=== PATIENT | male | born 1990 | race African-American/Black ===

== ENCOUNTER 2018-06-25 22:06 | Inpatient (IN) | payer OTHER, SELFPAY ==
[2018-06-25 23:58] LABS: #Basophils 0.1 thou/uL (0.0-0.2); #Eosinphils 0.1 thou/uL (0.0-0.7); #Lymphocytes 2.2 thou/uL (1.20-3.40); #Monocytes 0.9 thou/uL (0.11-0.59); #Neutrophils 3.3 thou/uL (1.40-6.50); %Basophils 0.8 % (0.0-1.0); %Eosinophils 1.4 % (0.0-10.0); %Lymphocytes 33.4 % (21.0-51.0); %Monocytes 13.1 % (0.0-10.0); %Neutrophils 51.3 % (42.0-75.0); Hemoglobin 13.9 g/dL (14.0-18.0); Mean Corpuscular HGB CONC 31.9 g/dL (32.0-36.0); Mean Corpuscular Hemoglobin 28.9 pg (27.0-31.0); Mean Corpuscular Volume 90.7 fL (78.0-98.0); Mean Platelet Volume 6.9 fL (7.4-10.4); Platelet Count 205 thou/uL (130-400); RBC Distribution Width 11.4 % (11.5-14.5); White Blood Cell (WBC) Count 6.5 thou/uL (4.8-10.8)
[2018-06-26] MEDS ORDERED: Dexamethasone 10 MG/ML VIAL ONE (00:01)
[2018-06-26] MEDS ORDERED: Morphine 4 MG/ML VIAL ONE (00:01)
[2018-06-26] MEDS ORDERED: Ketorolac Tromethamine 30 MG/ML VIAL ONE (00:01)
[2018-06-26 00:14] LABS: Anion Gap 13 mmol/L (10-20); BUN (Urea Nitrogen) 6 mg/dL (8.9-20.6); Calc. Creatinine Clearance 0 mL/min (70-130); Calcium 8.8 mg/dL (7.8-10.44); Carbon Dioxide 30 mmol/L (22-29); Chloride 97 mmol/L (98-107); Estimated GFR-MDRD Greater than 90; Glucose 85 mg/dL (70-105); Potassium 3.7 mmol/L (3.5-5.1); Sodium 136 mmol/L (136-145)
[2018-06-26] MEDS ORDERED: Ondansetron PF 4 MG/2 ML Vial IVP PRN (00:40)
[2018-06-26] MEDS: Cefepime 1 GM in Sodium Chloride 0.9% 100 ML IVPB SCH ×2 (01:57→14:03)
[2018-06-26] MEDS: Clindamycin/D5W 600 MG in Premix Bag 1 BAG IVPB SCH ×2 (02:08→10:28)
[2018-06-26 02:19] VITALS: BMI 17.2
--- NOTE | 2018-06-26 03:02 | HP ---
PRIMARY CARE DOCTOR: The patient has no PCP. CODE STATUS: Full code. TIME OF EVALUATION: 1:00 a.m. CHIEF COMPLAINT: Facial swelling. HPI: A 27 year old male patient with past medical history of HIV positive, noncompliant with medication, came to the hospital after having significant swelling in the right side of the face. Symptoms have been present since . The patient initially took some treatment with amoxicillin, did not improve. He came back to the dentist, dentist suggested him to go to the ER given the swelling and the fact that the patient has HIV. Dr. Garcia was called and he has agreed to admit the patient to hospital, he will be consulting. Symptoms are moderate, located in the right lower jaw associated with pain 6/10. Subjective fever, has not had fever here in the hospital, infection. No alleviating factors. REVIEW OF SYSTEMS: CONSTITUTIONAL: Subjective fever. No chills, no generalized weakness. RESPIRATORY: No cough, sputum production, shortness of breath and the patient has right submandibular swelling. Face painful, redness. CARDIOVASCULAR: No chest pain, palpitations. GASTROINTESTINAL: No nausea, no vomiting, diarrhea, abdominal pain. 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 GENITOURINARY: No burning on urination. EXTREMITIES: No leg swelling. All other systems were reviewed and negative except for the findings mentioned noted. PAST MEDICAL HISTORY: Patient is positive HIV, noncompliant. SURGICAL HISTORY: No surgeries. PSYCH HISTORY: Anxiety. SOCIAL HISTORY: The patient smokes on a daily basis half a pack per day. No alcohol, no drugs. ALLERGIES: NO KNOWN DRUG ALLERGIES REPORTED. MEDICATION: Januvia. PHYSICAL EXAMINATION: VITAL SIGNS: On presentation, blood pressure 119/53 with a heart rate of 60, respiratory rate of 16, temperature 98.9, pain was 6/10, oxygen saturation 96 on room air. GENERAL APPEARANCE: The patient is alert, oriented, not in acute distress. HEENT: Eyes; normal conjunctivae. Moist oral mucosa. Anicteric. No JVD. The patient has right submandibular swelling with tenderness on the right side of the face. RESPIRATORY: Bilateral air entry. No rales. No wheezes. Symmetric expansion. CARDIOVASCULAR: Normal rate, regular rhythm. No murmurs. No gallops. No edema. ABDOMEN: Soft, normal bowel sounds. MUSCULOSKELETAL: He has baseline range of motion and strength. No tenderness. SKIN: Warm, intact. No pallor. No rash. No redness. EXTREMITIES: Peripheral pulses are present. Capillary refill seems to intact. NEUROLOGIC: No evidence of any new focal weakness. Baseline speech. Cranial nerves seems to be intact. PSYCHIATRIC: The patient is in good mood. No anxiety. Oriented, optimal judgment. LABORATORY DATA: Sodium 136, potassium 3.6, chloride 97, carbon dioxide was 30, anion gap was 13, BUN 6, creatinine 0.8 with GFR greater than 90, glucose 85, calcium 9.8. CBC was done, white count is 6.5, hemoglobin 13.9, hematocrit 43.6, MCV 90 and platelet count 205. ASSESSMENT AND PLAN: The patient will be placed in the hospital for following medical problems: 1. Dental abscess. The patient has significant swelling and redness in the right submandibular area. The patient will be placed on broad-spectrum antibiotics, Dr. Garcia knows about the patient. He will see the patient for recommendations. We will treat it symptoms accordingly. 2. History of human immunodeficiency. The patient is noncompliant, might need Infectious Disease consult, if not improving with initial antibiotics. 3. Deep venous thrombosis prophylaxis. Job ID: [id number]
[2018-06-26] MEDS: Acetaminophen 325 MG TAB PO PRN ×2 (03:50→11:38)
[2018-06-26] MEDS: Ketorolac Tromethamine 30 MG/ML VIAL IVP PRN ×2 (03:50→11:34)
[2018-06-26 04:54] LABS: #Lymphocytes 1.4 thou/uL (1.20-3.40); #Monocytes 0.3 thou/uL (0.11-0.59); %Basophils 0.5 % (0.0-1.0); %Eosinophils 0.3 % (0.0-10.0); %Lymphocytes 20.2 % (21.0-51.0); %Monocytes 4.5 % (0.0-10.0); %Neutrophils 74.5 % (42.0-75.0); Hemoglobin 13.3 g/dL (14.0-18.0); Mean Corpuscular HGB CONC 32.3 g/dL (32.0-36.0); Mean Corpuscular Volume 89.8 fL (78.0-98.0); Mean Platelet Volume 7.2 fL (7.4-10.4); Platelet Count 214 thou/uL (130-400); RBC Distribution Width 11.4 % (11.5-14.5); Red Blood Cell (RBC) Count 4.59 mill/uL (4.70-6.10); White Blood Cell (WBC) Count 6.7 thou/uL (4.8-10.8)
[2018-06-26 05:15] LABS: Anion Gap 13 mmol/L (10-20); BUN (Urea Nitrogen) 8 mg/dL (8.9-20.6); Calc. Creatinine Clearance 108 mL/min (70-130); Calcium 9.3 mg/dL (7.8-10.44); Carbon Dioxide 27 mmol/L (22-29); Chloride 99 mmol/L (98-107); Estimated GFR-MDRD Greater than 90; Glucose 127 mg/dL (70-105); Sodium 135 mmol/L (136-145)
[2018-06-26] MEDS: Enoxaparin Sodium 40 MG/0.4 ML SYRINGE SC SCH (09:03)
[2018-06-26 10:56] LABS: HIV (1/2) Antibody/Antigen Reflxed Confirmation (NonReactive)
[2018-06-26] MEDS: Sodium Chloride 0.9% 1,000 ML IV SCH ×2 (13:26→15:24)
--- NOTE | 2018-06-26 13:33 | PDOC.EVN ---
Event Note - Event Note Event Note: Pt seen and examined. cont ABx, send HIV PCR,CD4. discussed estabilishing care w ID locally. cont IVF.BP on lower side.Monitor No new complaints. tolerating diet. Tooth extraction as an OP per OMFS
--- NOTE | 2018-06-26 15:13 | CON ---
DATE OF CONSULTATION: 06/26/2018 REASON FOR CONSULTATION: HIV with odontogenic infection. HISTORY OF PRESENT ILLNESS: A 27-year-old, first admission to [facility], who lives in [place] and has a longstanding history of HIV seropositive status, was managed by local physician in [place] as well as a doctor in [place]. He does not recall any of his CD4 cell count or viral load and he apparently has not been taking his medication anyways. He has had problems with his teeth, specifically right lower molar tooth that has been bothering him for the past many weeks and has failed oral amoxicillin. The patient has developed swelling of the right mandible and was admitted for management. He has no sore throat. No headaches or visual symptoms. No back pain. No dyspnea or cough. No abdominal pain or diarrhea. No genitourinary symptoms. No joint symptoms. PAST MEDICAL HISTORY: Longstanding HIV seropositive status, does not remember his CD4 cell count, he is managed in [place] for the most part, but has not been to his physician in [place] for a while. SOCIAL HISTORY: Smokes daily. Lives in [place]. ALLERGIES: NONE. CURRENT MEDICATIONS: Genvoya. PHYSICAL EXAMINATION: VITAL SIGNS: Essentially normal. SKIN: Shows no skin lesions. The patient has a peripheral IV access. HEENT: No lymphadenopathy. Ocular movements conjugate. Oral cavity with numerous missing teeth. An area of inflammatory change in the right molar region. There is swelling of the right submandibular region with tenderness. NECK: Supple. LUNGS: Symmetric clear breath sounds. HEART: S1 and S2. Regular rate. No S3 or S4. ABDOMEN: Soft. Not distended or tender. No ascites. No bladder distention. EXTREMITIES: No joint inflammatory activity. Moves extremities equally. Cognitive function is normal. LABORATORY DATA: White cell count 6.5, hemoglobin 13, platelets 205, and total lymphocyte count is 2.2. Chemistry with fairly unremarkable. IMAGING STUDY: I do no have any imaging studies at this time. ASSESSMENT AND PLAN: 1. HIV seropositive status with unknown CD4 cell count and irregular adherence to the clinic visits and anti-retroviral therapy. The patient is followed at another facility in [place], but has not been to this HIV physician in a while. 2. Now, he presents with odontogenic infection with likely tooth abscess and inflammatory process extending to the rn complex care space. May have osteomyelitis of the jaw has associated with this. He will need evaluation and management by oral surgeon or dentist with tooth extraction and antimicrobial therapy based on culture results. If he has osteomyelitis of the jaw and he will need protracted antimicrobial therapy and surgical debridement for the time being, we will switch him to Rocephin and Flagyl. Discontinue remainder of antimicrobials. Job ID: [id number]
[2018-06-26] MEDS: cefTRIAXone\\ROCEPHIN 1 GM in Sodium Chloride 0.9% 100 ML IVPB SCH (15:46)
[2018-06-26] MEDS: metroNIDAZOLE 500 MG TAB PO SCH ×2 (16:21→21:02)
[2018-06-27] MEDS: Sodium Chloride 0.9% 1,000 ML IV SCH ×3 (00:23→18:33)
[2018-06-27 06:08] LABS: #Basophils 0.1 thou/uL (0.0-0.2); #Eosinphils 0.1 thou/uL (0.0-0.7); #Lymphocytes 2.5 thou/uL (1.20-3.40); #Monocytes 0.6 thou/uL (0.11-0.59); #Neutrophils 2.7 thou/uL (1.40-6.50); %Basophils 2.3 % (0.0-1.0); %Eosinophils 1.2 % (0.0-10.0); %Neutrophils 45.5 % (42.0-75.0); Hemoglobin 12.2 g/dL (14.0-18.0); Mean Corpuscular Hemoglobin 28.9 pg (27.0-31.0); Mean Corpuscular Volume 90.4 fL (78.0-98.0); Mean Platelet Volume 7.4 fL (7.4-10.4); Platelet Count 260 thou/uL (130-400); RBC Distribution Width 11.4 % (11.5-14.5); Red Blood Cell (RBC) Count 4.21 mill/uL (4.70-6.10)
[2018-06-27 06:27] LABS: Anion Gap 11 mmol/L (10-20); BUN (Urea Nitrogen) 8 mg/dL (8.9-20.6); Calc. Creatinine Clearance 124 mL/min (70-130); Calcium 8.8 mg/dL (7.8-10.44); Carbon Dioxide 25 mmol/L (22-29); Chloride 108 mmol/L (98-107); Estimated GFR-MDRD Greater than 90; Glucose 93 mg/dL (70-105); Magnesium 1.9 mg/dL (1.6-2.6); Sodium 140 mmol/L (136-145)
[2018-06-27] MEDS: Enoxaparin Sodium 40 MG/0.4 ML SYRINGE SC SCH (09:00)
[2018-06-27] MEDS: metroNIDAZOLE 500 MG TAB PO SCH ×3 (09:40→20:25)
--- NOTE | 2018-06-27 11:22 | PDOC.PN ---
- Subjective Encounter Start Date: 06/27/18 Encounter Start Time: 11:20 Subjective: pt DCed yesterday as per OMFS instructions but did not go d/t insurance -: issues w OP coverage for dental extraction. -: wants to go home .c/o pain w eating - Objective Resuscitation Status - Order Detail: 06/26/18 00:40 Resuscitation Status Routine Resuscitation Status: FULL: Full Resuscitation Vital Signs & Weight: Vital Signs (12 hours) Temp Pulse Resp BP Pulse Ox 06/27/18 07:09 98.0 F 53 L 16 102/59 L 97 06/27/18 05:35 97.8 F 55 L 16 114/66 96 06/27/18 01:25 98 F 52 L 16 114/64 95 Weight Weight 131 lb Result Diagrams: 06/27/18 05:42 06/27/18 05:42 Additional Labs: Laboratory Tests 06/26/18 08:49 HIV 1&2 Antigen & Ab Reflxed Confirmation H Phys Exam - Physical Examination Constitutional: NAD HEENT: PERRLA, moist MMs, sclera anicteric, TM's clear, 2+ tonsils swelling and tenderness R jaw Neck: no nodes, no JVD, supple, full ROM Respiratory: no wheezing, no rales, no rhonchi Cardiovascular: RRR, no significant murmur Gastrointestinal: soft, non-tender, no distention, positive bowel sounds Musculoskeletal: no edema, pulses present Neurological: non-focal, normal sensation, moves all 4 limbs Psychiatric: normal affect, A&O x 3 Skin: no rash Dx/Plan (1) Dental abscess Code(s): K04.7 - PERIAPICAL ABSCESS WITHOUT SINUS Status: Acute (2) HIV (human immunodeficiency virus infection) Code(s): B20 - HUMAN IMMUNODEFICIENCY VIRUS [HIV] DISEASE Status: Acute - Plan DVT proph w/SCDs cont ABx.Tooth extraction per OMFS -: CM requested to help w insurance issues -: will cancel discharge untill procedure done -: HD stable. no evidence of sepsis. -: add viscous lidociane orally for topical relief * .HIV studies pending.non compliant.educated about the need for continued Rx * ID to see in OP setting as well Review of Systems - Review of Systems Constitutional: negative: fever, chills, sweats, weakness, malaise, other ENT: Other (jaw and tooth pain r side) Respiratory: negative: Cough, Dry, Shortness of Breath, Hemoptysis, SOB with Excertion, Pleuritic Pain, Sputum, Wheezing Cardiovascular: negative: chest pain, palpitations, orthopnea, paroxysmal nocturnal dyspnea, edema, light headedness, other Gastrointestinal: negative: Nausea, Vomiting, Abdominal Pain, Diarrhea, Constipation, Melena, Hematochezia, Other Genitourinary: negative: Dysuria, Frequency, Incontinence, Hematuria, Retention , Other Musculoskeletal: negative: Neck Pain, Shoulder Pain, Arm Pain, Back Pain, Hand Pain, Leg Pain, Foot Pain, Other Neurological: negative: Weakness, Numbness, Incoordination, Change in Speech, Confusion, Seizures, Other - Medications/Allergies Allergies/Adverse Reactions: Allergies Allergy/AdvReac Type Severity Reaction Status Date / Time No Known Drug Allergies Allergy Verified 06/26/18 08:54 Medications: Current Medications Acetaminophen (Tylenol) 650 mg PO Q6H PRN PRN Reason: .FEVER Last Admin: 06/26/18 11:38 Dose: 650 mg Enoxaparin Sodium (Lovenox) 40 mg SC 0900 [facility] Last Admin: 06/26/18 09:03 Dose: Not Given Sodium Chloride (Normal Saline 0.9%) 1,000 mls @ 120 mls/hr IV .Q8H20M [facility] Last Admin: 06/27/18 09:42 Dose: 1,000 mls Ceftriaxone Sodium 1 gm/ (Sodium Chloride) 100 mls @ 200 mls/hr IVPB Q24HR [facility] Last Admin: 06/26/18 15:46 Dose: 100 mls Ketorolac Tromethamine (Toradol) 15 mg IVP Q6H PRN PRN Reason: Pain Stop: 07/01/18 03:46 Last Admin: 06/26/18 11:34 Dose: 15 mg Lidocaine HCl (Xylocaine 2% Viscous) 15 ml SSW QID [facility] Metronidazole (Flagyl) 500 mg PO TID [facility] Last Admin: 06/27/18 09:40 Dose: 500 mg Ondansetron HCl (Zofran) 4 mg IVP Q6H PRN PRN Reason: Nausea/Vomiting Sodium Chloride (Flush - Normal Saline) 10 ml IVF Q12HR [facility] Last Admin: 06/26/18 21:05 Dose: Not Given Sodium Chloride (Flush - Normal Saline) 10 ml IVF PRN PRN PRN Reason: Saline Flush
[2018-06-27] MEDS ORDERED: Lidocaine Viscous Sol 2% 15 ml UD Cup SSW SCH (13:00)
[2018-06-27 13:14] LABS: %CD4 (Helper/Inducer) 17.4 % (30.8-58.5); Absolute CD4 244 /uL (359-1519); Lymphocytes/Gated Cell Count 1.4 x10E3/uL (0.7-3.1); Total Lymphocyte 27 % (Not Estab.); WBC Total Count 5.1 x10E3/uL (3.4-10.8)
[2018-06-27] MEDS: Lidocaine Viscous Sol 2% 15 ml UD Cup SSW SCH ×3 (14:54→20:25)
[2018-06-27] MEDS: cefTRIAXone\\ROCEPHIN 1 GM in Sodium Chloride 0.9% 100 ML IVPB SCH (15:02)
--- NOTE | 2018-06-27 15:10 | CON ---
DATE OF CONSULTATION: REASON FOR CONSULTATION: Tooth abscess in response to hospitalist Dr. Kruger's request. CHIEF COMPLAINT: Jaw pain and swelling. HISTORY OF PRESENT ILLNESS: This is a 27-year-old male with a history of HIV, who was transferred from [facility] for a dental abscess. Mr. Aguilera has complained of a several day history of pain and increase swelling tho the right jaw. He say it has recently began to drain pus over the last 24 hours. Mr. Aguilera Denies difficulty opening, swallowing, or breathing, he has no paresthesia. He is non compliant with his HIV medications. I was notified of Mr. Aguilera by the transfer center, and discussed case with the ER doctor at [facility] whom I told I felt he cold be treated by an oral surgeon in [facility] on an out patient basis, he however did not feel comfortable calling or communicating with a oral surgeon in [place] so patient was transferred to [place] and admitted. PHYSICAL EXAMINATION: His white blood cell count is 6.7, platelet count 260. VITAL SIGNS: Pulse is 54, temperature is 98.3, he is sating 97% on room air, his blood pressure is 108/61. PAST MEDICAL HISTORY: HIV. MEDICATIONS: The patient says he is not currently taking any medications. He is not compliant with his medications. PAST SURGICAL HISTORY: None. SOCIAL HISTORY: The patient denies illicit drugs abuse, but he does say he smoke marijuana. He does smoke cigarettes daily. He lives in [place]. He denies alcohol abuse. He does not remember his last CD4 count. ALLERGIES: NONE. HE IS AWAKE, ALERT, ORIENTED X3. HE IS IN NO ACUTE DISTRESS. HE HAS A SMALL AMOUNT OF RIGHT VESTIBULAR SWELLING ADJACENT TO TOOTH #31 WITH SPONTANEOUS DRAINAGE OF MILD AMOUNT OF PURULENT FLUID FROM AROUND THE TOOTH. TOOTH 31 IS GROSSLY DECAYED. HE IS MISSING THE MOLARS AND PREMOLARS IN FRONT OF THIS TOOTH. HIS OPENING IS EXCELLENT. HIS OROPHARYNX IS CLEAR. THERE IS NO UVULA DEVIATION. THERE IS NO FLOOR OF THE MOUTH SWELLING. There is no swelling below the angle of the mandible. Cranial nerve V3 is intact. CT SCAN FROM [facility] SHOWS A PERIAPICAL ABSCESS AROUND #31 with adjacent soft tissue swelling and fluid. ASSESSMENT: 27-year-old male with history of HIV with self-draining vestibular abscess from necrotic tooth 31. PLAN: I recommend the patient have tooth 31 removed and further I and D of vestibular space. This can be done either in the OR at [facility] or in my clinic. I feel the patient is appropriate for out patient therapy and would recommend a 7 day course of Amoxicillin 500mg tid in addition to extraction and I and D. Patient also given the option to be done under local anesthesia or IV sedation or general anesthesia. Job ID: [id number] MTDD
--- NOTE | 2018-06-27 18:11 | PRG ---
DATE OF SERVICE: 06/27/2018 SUBJECTIVE: Still a little bit weak, but not much pain in the tooth area. No respiratory symptoms or abdominal pain. No genitourinary symptoms. OBJECTIVE: VITAL SIGNS: Normal. HEENT: Actually there is no submandibular swelling mostly localized to the mandible itself in the tooth area. LUNGS: Clear. HEART: S1 and S2. Regular rate. ABDOMEN: Soft, not distended. LABORATORY DATA: White cell count 6.0, hemoglobin 12, platelets 260. Sodium 140, creatinine 0.74. Absolute CD4 cell count 244. ASSESSMENT AND DISCUSSION: Human immunodeficiency virus positive patient with poor adherence to anti-retroviral therapy in clinic visits, who has a relatively low CD4 cell count. He is admitted with a tooth abscess. He needs to have tooth extracted, may have developed osteomyelitis. In that case, he would need oral surgeon's attention debridement and protracted antimicrobial therapy guided by cultures. There have been some issues with the assignment of a dentist to take care of his problem. Once that is resolved, then he can be discharged home with again combination of Flagyl with Omnicef or Flagyl plus cefpodoxime would work although that he might have some issues in obtaining the medication, but I think he does have insurance to pay for the medication combination. Duration of therapy would depend on the surgical findings. He may require long-term antimicrobial therapy. Job ID: [id number]
[2018-06-28] MEDS: Sodium Chloride 0.9% 1,000 ML IV SCH ×2 (04:00→09:58)
[2018-06-28 08:52] VITALS: BP 106/60; TEMP 98.7
[2018-06-28] MEDS ORDERED: Polyethylene Glycol 3350 17 GM Packet PO SCH (09:30)
[2018-06-28] MEDS: Lidocaine Viscous Sol 2% 15 ml UD Cup SSW SCH (09:57)
[2018-06-28] MEDS: Enoxaparin Sodium 40 MG/0.4 ML SYRINGE SC SCH (09:57)
[2018-06-28] MEDS: metroNIDAZOLE 500 MG TAB PO SCH (09:57)
[2018-06-28 14:14] LABS: LOG10 HIV-1 RNA 4.757 (.)
[2018-06-28 16:13] LABS: HIV 1 Antibody Multi-Spot Positive (Negative); HIV 2 Antibody Multi-Spot Negative (Negative); HIV Multi-spot Interp HIV-1 Positive (.)
--- NOTE | 2018-06-29 04:54 | DIS ---
DATE OF ADMISSION: 06/25/2018 DATE OF DISCHARGE: 06/28/2018 CONDITION AT THE TIME OF DISCHARGE: Stable and improved. DISCHARGE DIAGNOSES: 1. Dental abscess. 2. Uncontrolled, untreated human immunodeficiency virus infection. 3. Significant noncompliance. DISCHARGE MEDICATIONS: 1. Omnicef 300 mg p.o. b.i.d. for 6 weeks. 2. Metronidazole 500 mg p.o. t.i.d. for 6 weeks. 3. Florastor 250 mg p.o. daily. IN-HOUSE CONSULTATION: 1. Oromaxillofacial surgeon, Dr. Garcia. 2. Infectious Disease, Dr. Sin. PROCEDURES DONE IN HOSPITAL: None. HISTORY OF PRESENTING ILLNESS: Mr. Aguilera is a 27-year-old male with known history of HIV, who has run out of his medications few months ago and has no desire to go back, presented to the emergency room with complaints of facial swelling. He has had some outpatient antibiotics, which did not improve his symptoms, so he presented to the ER. Oral maxillofacial surgeon, Dr. Garcia was consulted from the ER and he was admitted with a presumptive diagnosis of dental abscess. He was hemodynamically stable upon presentation. Please see admission history and physical for further details. He was started on broad-spectrum IV antibiotic and ID and oral maxillofacial surgeon was consulted. HOSPITAL COURSE: The patient had some improvement in his symptoms initially with IV and his oral antibiotics was changed later as per the instruction of Dr. Sin. Dr. Garcia could not operate upon the patient for the tooth extraction as he was out of network. The patient exhibited desire to leave [facility] or to be discharged. He had no desire to get his tooth extracted in the next week or so. I specifically told him that I will not be able to discharge him until he has a plan in place for his tooth extraction. I am very much worried that given his uncontrolled HIV status, he most likely will end up with either osteonecrosis or osteomyelitis of the jaw or bacteremia, which can be fatal. Unfortunately, the patient exhibited no intelligence with regard to his dire situation. He even refused to get the lab draw the HIV status, but later agreed. His HIV antigen and antibody were positive. PCR showed high counts of the virus and his CD4 was only 244. Nevertheless, I personally called his dentist office in [place]. The number was provided to me by the patient himself. I have secured an appointment for him on the 30 of June at 1130 hours. I discussed this with the patient and his brother over the phone that it is absolutely necessary for the patient to keep this appointment. At this time, he will be discharged on oral antibiotic. All the prescriptions were provided to him. He remains a very high risk for decompensation as he does not demonstrate any understanding of the prognosis and the disease process. He was seen and examined prior to discharge. PHYSICAL EXAMINATION: VITAL SIGNS: This morning, temperature 98.7, pulse of 51, respirations 18, saturating 96% on room air, blood pressure 106/60. GENERAL: No acute distress. Awake, alert, and oriented x3. CHEST: Clear to auscultation bilaterally. HEART: Rhythm is regular. FACE: He has minor swelling and tenderness to the right lower jaw. According to Dr. Garcia his tooth #31 is involved and needs to come out as soon as possible. Please see [facility] for further details. LABORATORY DATA: Lab examination, his CD4 count is 244, and his HIV 1 PCR is 57,100. TIME SPENT: Total time spent in discharge 35 minutes, including the time spent securing his appointment with his dentist as the patient did not want to do that himself. Job ID: [id number]
== END 2018-06-28 11:45 | disposition home or self-care (01) | DRG 158 ==
LOC: ERS 22:06 → SURG A 23:26
PROVIDERS: ADMIT Hospitalist; ATTEND Hospitalist
DX: K04.7 Periapical abscess without sinus (principal); B20 Human immunodeficiency virus [HIV] disease; F17.210 Nicotine dependence, cigarettes, uncomplicated; Z91.14 Patient's other noncompliance with medication regimen
CPT/HCPCS: 36415; 80048; 83735; 85025; 85048; 86361; 86701; 86702; 87389; 87536; 96374; 96375; J0692; J0696; J1100; J1650; J1885; J2270; J3490; J7050